=== PATIENT | female | born 1980 | race Caucasian/White ===

== ENCOUNTER → 2022-02-19 09:35 | Outpatient (CLI) | payer OTHER, SELFPAY ==
--- NOTE | ~2022-02-19 | XR_ITS ---
EXAM: XR lumbar spine min 4V DATE: 02/19/2022 10:15 HISTORY: M54.16 - Radiculopathy, lumbar region . COMPARISON: None available. FINDINGS: Cholecystectomy clips. Tubal ligation 5 nonrib-bearing lumbar-type vertebral bodies. Pedicl es intact. 3 mm anterolisthesis of L5 on S1. Vertebral body heights preserved. Disc space narrowing, mild at L4-5 and severe at L5-S1. No pars defect. Lower lumbar facet hypertrophy and sclerosis. No fr acture or dislocation. IMPRESSION: Grade 1 anterolisthesis and severe degenerative disc disease at L5-S1. Moderate lower lum bar facet arthropathy. Reviewed, dictated and finalized at location K. IMPRESSION: Grade 1 anterolisthesis and severe degenerative disc disease at L5- S1. Moderate lower lumbar facet arthropathy.
== END ==
PROVIDERS: PCP Family Medicine; Visit Provider Family Medicine
DX: M47.26 Other spondylosis with radiculopathy, lumbar region (principal)
CPT/HCPCS: 72110

== ENCOUNTER 2022-03-06 12:30 | Outpatient (RCR) | payer OTHER, SELFPAY | END 2022-04-18 11:10 | disposition home or self-care (01) | LOC: ANHGOSHPT 12:30 | PROVIDERS: PCP Family Medicine; Visit Provider Family Medicine | DX: M54.16 Radiculopathy, lumbar region (principal) | CPT/HCPCS: 99199 ==

== ENCOUNTER 2022-04-03 12:30 | Outpatient (RCR) | payer OTHER, SELFPAY ==
--- NOTE | 2022-03-06 13:44 | PTOPEVAL ---
PHYSICAL THERAPY INITIAL EVALUATION. Thank you for referring Nuria Billings to [facility].? The patient is scheduled to be seen for therapy? 2x/week for 4 weeks. Please review, sign, date and return this plan of care JOSH. I agree with and certify that the following plan of care is medically necessary. Referring Physician Date Attending Provider: Ben Garsia MD *PT Outpatient Evaluation Start: 03/06/22 Evaluation Information Diagnosis low back, buttock, and leg pain Onset 3 years Subjective Information Pts states she the last 3 Query Text:As Reported By Patient/ years her back has gone numb. Family In the last couple of months, this has progressed to shooting pain down the back of her L leg, also causing her L foot to go numb. She states this is the worst at the end of the day and with static standing like cooking dinner. She states the intensity of her pain is directly related to the amount of activity she has done that day. Pt states she can sit for as long as she wants. Pt states she has been trying to walk for exercise but is limited d/t her back pain. 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 Pain Assessment Lower Back Reported Pain Level 2 Pain Description Numbness,Shooting Pain Radiation Left Leg Lowest Pain Intensity 0 Greatest Pain Intensity 6 Lumbar ROM Lumbar Flexion Active Ankle Lateral Flexion able to reach lateral knee Query Text:Active Hands to: joint bilaterally Lateral Rotation Right (0-45) 45 Lateral Rotation Left (0-45) 45 Lumbar ROM 75% of Normal Lumbar Comments no movement bias noted through repeated flexion/extension 4 cm of change during extension 10 cm of change during flexion Lower Extremity Range of Motion General Lower Extremity Range of Motion WFL/Left,WFL/Right Lower Extremity Muscle Strength Testing Gross Lower Extremity Strength dashawn hip flexion 4+/5 dashawn hip abduction 4/5 dashawn knee flexion/extnesion 4/5 Muscle Length Testing Muscle Length Testing Piriformis
--- NOTE | 2022-04-03 13:11 | PTOPDC ---
Evaluation Information Assessment Status Progress Diagnosis low back pain Onset 3 years Subjective Information Pt states in over a week she has had absolutely no pain. She reports minor tingling in her calf 2 days ago that lasted less than 5 mins. Pt states standing and cooking dinner is usually when she has pain, she has not had this in a week. Pt reports 75% improvement in overall symptoms. Cristóbal reports good compliance with her HEP. Reported Pain Level Pain Score 0: Self Report Assessment PT Clinical Summary Nuria presents to therapy today for her progress report following 6 visits of therapy. Today she reports no pain in the last week and one report of mild tingling that subsided quickly. She has improved her lumbar motion, LE strength, and postural awareness. She reports good compliance with her HEP and has met all of her therapy goals. She is to be discharged from skilled therapy services at this time with instructions to continue her HEP upon discharged and to follow up with her referring provider if needed. Plan of Care PT Services Indicated No Treatment Frequency and to be d/c'ed Duration
== END 2022-04-17 09:49 | disposition home or self-care (01) ==
LOC: ANHGOSHPT 12:30
PROVIDERS: PCP Family Medicine; Visit Provider Family Medicine
DX: M54.16 Radiculopathy, lumbar region (principal)
CPT/HCPCS: 97110; 97112; 97140; 97161; 97530

== ENCOUNTER → 2022-09-09 11:17 | Outpatient (CLI) | payer OTHER, SELFPAY ==
--- NOTE | ~2022-09-09 | MM_ITS ---
EXAMINATION: MM screening garcia BI w macrina HISTORY: Screening mammogram TECHNIQUE: Craniocaudal and mediolateral oblique 3-D tomosynthesis images were obtained and synthetic 2-D images were generated. CAD analysis was submitted and interpreted. COMPARISON: No prior mammogram is available for comparison at this institution. BREAST PARENCHYMAL COMPOSITION: The breasts are almost entirely fatty. FINDINGS: There is no evidence of suspicious mass, calcification, or architectural distortion to sugg est malignancy in either breast. There has been no suspicious interval change. IMPRESSION: 1. No mammographic evidence of malignancy. 2. Recommend routine screening mammography in one year. BI-RADS Category 1: Negative Reviewed, dictated and finalized at location A. ING EFFICIENCY COURSE DIRECTOR
== END ==
PROVIDERS: PCP Family Medicine; Visit Provider Family Medicine
DX: Z12.31 Encounter for screening mammogram for malignant neoplasm of breast (principal)
CPT/HCPCS: 77063; 77067

== ENCOUNTER 2023-02-08 09:50 | Emergency (ER) | payer OTHER, SELFPAY ==
[2023-02-08] VITALS (17 sets, daily range): BP systolic 97–169; BP diastolic 76–97; PULSE 79–102; RESP 13–31; TEMP 36.7; O2SAT 77–100
--- NOTE | ~2023-02-08 | CT_ITS ---
EXAMINATION: CT abdomen pelvis wo con DATE: 02/08/2023 10:40 INDICATION: Left flank pain. TECHNIQUE: Computed tomography (CT) of the abdomen and pelvis was performed without intravenous contr ast. Automated exposure control and iterative reconstruction technique were employed. The dose-length product was 1440.93 mGy-cm. COMPARISON: None. FINDINGS: The visualized portions of the lung bases demonstrate mild atelectasis. No pleural effusion . The heart size is normal. No pericardial effusion. The liver and spleen are normal. There are sofia es of cholecystectomy. The pancreas and adrenal glands are normal. There is a 1 mm stone in right kid [place]. There are 1 mm and 3 mm stones in left kidney. There is mild left hydronephrosis and hydroureter . There is a 2 mm stone in distal left ureter. There are inserts in the fallopian tubes. There are no dilated loops of bowel. The appendix is normal. There are no pathologically enlarged lymph nodes. Th ere is no free intraperitoneal fluid. There is an umbilical hernia containing fat. There is moderate lower lumbar spondylosis. IMPRESSION: 1. 2 mm stone in distal left ureter with mild left hydronephrosis and hydroureter. 2. Bilateral nonobstructing kidney stones. Reviewed, dictated and finalized at location A. IMPRESSION: 1. 2 mm stone in distal left ureter with mild left hydronephrosis and hydrouret er. 2. Bilateral nonobstructing kidney stones.
--- NOTE | ~2023-02-08 | XR_ITS ---
EXAMINATION: XR chest 2V DATE: 02/08/2023 12:30 INDICATION: Epigastric abdominal pain. TECHNIQUE: Frontal and lateral views of the chest were obtained. COMPARISON: CT abdomen and pelvis 02/08/2023 FINDINGS: The chest demonstrates clear lungs without pneumonia, pleural effusion, or pneumothorax. Th e heart size is normal. Surgical clips in the right upper quadrant are likely from cholecystectomy. IMPRESSION: 1. No acute cardiopulmonary disease. Reviewed, dictated and finalized at location A.
--- NOTE | 2023-02-08 10:03 | ED.ABDPAIN ---
HPI - Abdominal Pain General Chief Complaint: Abdominal Pain <Steph Rey PA-C - Last Filed: 02/08/23 14:03> Stated Complaint: left flank pain <Steph Rey PA-C - Last Filed: 02/08/23 14:03> Time Seen by Provider: 02/08/23 09:57 <Steph Rey PA-C - Last Filed: 02/08/23 14:03> History of Present Illness HPI narrative: 42-year-old female reports for evaluation of left flank pain that radiates to her suprapubic region since 514 today. She is also reporting decreased urine output, nausea and vomiting x2. She denies fever, body aches or chills, dysuria or hematuria, diarrhea. No history of kidney stones. Last BM today was normal. <Steph Rey PA-C - Last Filed: 02/08/23 14:03> Related Data Allergies/Adverse Reactions: Allergies Allergy/AdvReac Type Severity Reaction Status Date / Time dog dander Allergy Unknown unknown Verified 02/08/23 09:59 No Known Allergies Allergy Verified 02/08/23 09:59 <Steph Rey PA-C - Last Filed: 02/08/23 14:03> Review of Systems Review of Systems: CONSTITUTIONAL: Denies fever, chills EYES: Denies visual changes, redness, or discharge. ENT: Denies rhinorrhea, congestion, sore throat, or otalgia. CARDIOVASCULAR: Denies chest pain, palpitations, or edema. RESPIRATORY: Denies cough or dyspnea. GASTROINTESTINAL: See HPI GENITOURINARY: See HPI SKIN: Denies rash or itching. MUSCULOSKELETAL: See HPI NEUROLOGIC: Denies headache, numbness, dizziness, or weakness. PSYCHIATRIC: Denies anxiety or depression. <Steph Rey PA-C - Last Filed: 02/08/23 14:03> [facility] Past Medical History Medical History: Medical History Carpal tunnel syndrome FH: cholecystectomy Influenza A <Steph Rey PA-C - Last Filed: 02/08/23 14:03> Surgical History Surgical History: Surgical History Hx of cholecystectomy <Steph Rey PA-C - Last Filed: 02/08/23 14:03> Family History Family History: Family History Sibling Family history of thyroid disease Breast cancer Father Family history of thyroid disease Family history of chronic obstructive pulmonary disease Mother Family history of thyroid disease Hypertension Grandparent Family history of glaucoma Cerebrovascular accident <Steph Rey PA-C - Last Filed: 02/08/23 14:03> Social History Social History: Social History Smoking status: Never smoker Alcohol intake: current <Steph Rey PA-C - Last Filed: 02/08/23 14:03> Exam Narrative: GENERAL: Well-appearing, in no acute distress. Patient resting comfortably examined. She is pleasant and positional. HEAD: Normocephalic EYES: PERRLA ENT: Nares clear. Mucous membranes moist. Oropharynx without tonsillar hypertrophy exudate or other lesions. NECK: Supple. CHEST: No respiratory distress. Clear to auscultation, no adventitious breath sounds. HEART: Regular rate and rhythm. No murmur heard. Normal peripheral pulses. ABDOMEN: Soft, nontender, normal active bowel sounds. No CVA tenderness. EXTREMITIES: Normal range of motion. No edema. SKIN: Warm, dry, no rash. NEURO: No focal deficits. Alert and oriented x3. PSYCH: Normal mood and affect. <Steph Rey PA-C - Last Filed: 02/08/23 14:03> Course Course Emergency Course: Pt reevaluated. She reports resolution of abdominal pain, but is now tearful and complaining of burning epigastric pain radiating to her back, which she believes is secondary to indigestion. Given she is an overweight middle aged femail with positive FMH of cardiac dz, will initiate cardiac workup in addition to administration of Pepcid and GI cocktail. Pt agreeable to plan. <Steph Rey PA-C - Last Filed:
[2023-02-08 10:15] LABS: Basophils Percent Auto 0.4 % (0.2-1.2); Eosinophils Percent Auto 0.4 % (0-4.4); Hemoglobin 14.6 g/dL (12.0-15.0); Immature Granulocyte Absolute 0.04 K/mm3 (0.00-0.031); Immature Granulocyte Percent A 0.8 % (0-0.5); Lymphocytes Absolute Auto 0.63 K/mm3 (0.9-3.2); Lymphocytes Percent Auto 12.8 % (18.3-44.2); Mean Corpuscular HGB Conc 32.4 g/dl (32-36); Mean Corpuscular Volume 83.3 fl (80-100); Mean Platelet Volume 10.3 fl (7.4-10.4); Monocytes Absolute Auto 0.3 K/mm3 (0.1-0.6); Monocytes Percent Auto 6.3 % (2.6-8.5); Neutrophils Absolute Auto 3.9 K/mm3 (1.3-6.7); Neutrophils Percent Auto 79.3 % (45.5-73.1); Platelet Count Result 219 k/mm3 (150-375); Red Cell Distribution Width 12.4 % (11.5-14.5); White Blood Count 4.9 K/mm3 (4.5-10.0)
[2023-02-08] MEDS: ONDANSETRON INJ 4 MG/2 ML VIAL IV PUSH (10:23)
[2023-02-08] MEDS: SODIUM CHLORIDE 0.9% IV 1,000 ML 999 ML IV CONT (10:23)
[2023-02-08] MEDS: MORPHINE SULFATE (*CRX) 4 MG/ML INJ IV PUSH (10:23)
[2023-02-08 10:45] LABS: Alanine Aminotransferase 45 U/L (6-35); Albumin Level 4.5 g/dL (3.5-5.1); Alkaline Phosphatase 63 U/L (38-126); Anion Gap 5 mmol/L (8-16); Aspartate Amino Transferase 43 U/L (14-36); Bilirubin,Total 0.5 mg/dL (0.2-1.3); Blood Urea Nitrogen 14 mg/dL (7-17); Calcium 9.2 mg/dL (8.4-10.2); Carbon Dioxide 28 mmol/L (22-30); Chloride 105 mmol/L (98-107); Estimated CRCL calculation 85 ml/min; Estimated Glomerular Filt Rate > 60; Glucose 112 mg/dL (65-110); Lipase 67 U/L (23-300); Potassium 4.1 mmol/L (3.4-5.0); Sodium 138 mmol/L (137-145)
[2023-02-08 10:57] LABS: Appearance Urine Turbid (Clear); Bacteria Urine 4+ /hpf; Bilirubin Urine 1+ (Negative); Blood Urine Negative (Negative); Color Urine Dark Yellow (Yellow); Glucose Urine UA Negative (Negative); Ketones Urine Trace mg/dL (Negative); Leukocyte Esterase Ur 2+ LEU/UL (Negative); Need Manual Microscopic Reviewed; Nitrate Urine Negative (Negative); Protein Urine 1+ mg/dL (Negative); RBC Urine 21-50 /hpf (0-2); Specific Grav Ur 1.035 (1.001-1.035); Squamous Epithelial Cell Urine Moderate /hpf (Few); WBC Urine 21-50 /hpf; pH Urine 7.5 (5.0-9.0)
[2023-02-08 11:10] LABS: Add Urine Microscopic? YES
[2023-02-08] MEDS: BELLADONNA ALK/PHENOB ELIX 10 ML, MAG HYDROX/ALUMINUM HYD/SIMETH 30 ML, LIDOCAINE HCL 2... PO (11:34)
[2023-02-08] MEDS: FAMOTIDINE 20 MG/2 ML VIAL IV PUSH (11:37)
--- NOTE | 2023-02-08 12:04 | ECG_ITS ---
Measurements Intervals [place] Rate: 85 P: 34 NJ: 191 QRS: 43 QRSD: 89 T: 39 QT: 370 QTc: 441 Interpretive Statements SINUS RHYTHM BASELINE ARTIFACT- I, III, AVR, AVL BORDERLINE ECG NO PREVIOUS ECG AVAILABLE FOR COMPARISON Electronically Signed On 02-08-2023 16:37:08 CDT by Adolfo Camarillo D.O.
[2023-02-08 13:01] LABS: INR 0.9; Partial Thromboplastin Time 25.5 SECONDS (22.3-36.8); Prothrombin Time 12.8 Seconds (11.1-14.7)
[2023-02-08 13:06] LABS: NT Pro B Type Natriuretic Pept 31 pg/mL (19.9-100); Troponin I < 0.012 ng/mL (0.000-0.034)
[2023-02-08 13:23] LABS: Troponin I < 0.012 ng/mL (0.000-0.034)
== END 2023-02-08 14:39 | disposition home or self-care (01) ==
PROVIDERS: Emergency Medicine; Emergency Provider Physician Assistant; PCP Family Medicine
DX: N13.2 Hydronephrosis with renal and ureteral calculous obstruction (principal); R10.13 Epigastric pain; R82.89 Other abnormal findings on cytological and histological examination of urine
CPT/HCPCS: 36415; 71046; 74176; 80053; 81001; 81025; 83690; 83880; 84484; 85025; 85610; 85730; 87086; 93005; 96361; 96365; 96375; 99284; A9270; J0696; J2270; J2405; J7030

== ENCOUNTER → 2023-02-17 13:13 | Outpatient (CLI) | payer OTHER, SELFPAY ==
--- NOTE | ~2023-02-17 | US_ITS ---
Renal-Bladder ultrasound Clinical History: Hydronephrosis Technique: Real-time sonographic imaging of the kidneys and urinary bladder was performed. Findings: The right kidney measures 9.4 cm in length and the left kidney measures 10.9 cm. There is n o hydronephrosis or renal calculus identified. Renal cortical echogenicity is within normal limits. N o renal mass lesion is identified. The urinary bladder is moderately distended at the time of this exam. No intraluminal echoes are iden tified. No abnormal wall thickening is seen. Impression: Unremarkable ultrasound of the kidneys and urinary bladder. Reviewed, dictated and finalized at location M. Impression: Unremarkable ultrasound of the kidneys and urinary bladder.
== END ==
PROVIDERS: PCP Family Medicine; Visit Provider Family Medicine
DX: N13.2 Hydronephrosis with renal and ureteral calculous obstruction (principal)
CPT/HCPCS: 76775

== ENCOUNTER 2024-07-12 08:13 | Outpatient (CLI) | payer OTHER, SELFPAY ==
--- NOTE | ~2024-07-12 | MR_ITS ---
MRI of the lumbar spine Clinical History: Radiculopathy Technique: Axial T2-weighted images, and sagittal T1-weighted, T2-weighted, and T2 fat-sat images wer e acquired. Findings: There is no fracture in the lumbar spine. There is minimal grade 1 anterolisthesis of L5 ov er S1. No bone marrow signal abnormality seen. At L1-L2, L2-L3, L3-L4, there is no disc bulge or herniation. There are moderate facet joint degenera tive changes at these levels. No spinal canal stenosis or neural foraminal narrowing at these levels. At L4-L5, there is disc bulge and severe facet arthropathy, resulting in mild central canal stenosis. There is moderate to severe right neural foraminal narrowing focally. Left neural foramen preserved. At L5-S1, there is disc bulge and severe facet arthropathy, with severe spinal canal stenosis. There is mild to moderate bilateral neural foraminal narrowing. Paravertebral soft tissues are unremarkable. Impression: Advanced degenerative spondylosis at L4-L5 and L5-S1, as detailed above. Minimal grade 1 anterolisthesis of L5 over S1. Reviewed, dictated and finalized at [facility]. VAULT SUPERVISOR Impression: Advanced degenerative spondylosis at L4-L5 and L5-S1, as detailed above. Minimal grade 1 anterolisthesis of L5 over S1.
== END 2024-07-12 08:14 | disposition home or self-care (01) ==
PROVIDERS: PCP Family Medicine; Visit Provider Family Medicine
DX: M47.816 Spondylosis without myelopathy or radiculopathy, lumbar region (principal); M47.817 Spondylosis without myelopathy or radiculopathy, lumbosacral region; M43.17 Spondylolisthesis, lumbosacral region
CPT/HCPCS: 72148

== ENCOUNTER 2024-07-29 09:54 | Outpatient (CLI) | payer OTHER, SELFPAY ==
--- NOTE | ~2024-07-29 | MM_ITS ---
EXAMINATION: MM screening garcia BI w macrina HISTORY: Screening. Significant family history of breast cancer TECHNIQUE: Craniocaudal and mediolateral oblique 3-D tomosynthesis images were obtained and synthetic 2-D images were generated. CAD analysis was submitted and interpreted. COMPARISON: 09/09/2022 BREAST PARENCHYMAL COMPOSITION: There are scattered areas of fibroglandular density. FINDINGS: Punctate calcifications detected bilaterally, benign in appearance and dermal in origin. Stable parenchymal pattern without suspicious microcalcifications, architectural distortion, discrete masses or significant asymmetry. IMPRESSION: 1. No mammographic evidence of malignancy. 2. Recommend routine screening mammography in one year. BI-RADS Category 2: Benign finding(s). Reviewed, dictated and finalized at location A. L PERFORMER
== END 2024-07-29 09:55 | disposition home or self-care (01) ==
LOC: MICIMG 09:55
PROVIDERS: PCP Family Medicine; Visit Provider Family Medicine
DX: Z12.31 Encounter for screening mammogram for malignant neoplasm of breast (principal); Z80.3 Family history of malignant neoplasm of breast
CPT/HCPCS: 77063; 77067

== ENCOUNTER 2024-09-03 03:24 | Day surgery (SDC) | payer OTHER, SELFPAY ==
[2024-08-24 12:40] VITALS: BMI 39.2
--- OUTSIDE RECORDS SUMMARY | 2024-09-03 03:31 | XMS_ITS | Clinical Summary ---
Author Organization [facility] Address [address] [place] [id number] Care Team Providers Care Advertising Sales Assistant Name Role Phone Leonela Garsia MD Primary Care Provider + Allergies No known active allergies Medications gabapentin (NEURONTIN) 300 mg capsuleIndicati ons:Spinal stenosis, lumbar region without neurogenic claudication,Ra diculopathy, lumbar region Take 1 capsule (300 mg total) by mouth 3 (three) times a day 90 capsule 2 07/21/2024 5 Active Active Problems No known active problems Encounters Date Type Department Care Team Description 07/21/2024 7:57 PM AFFIRMATIVE ACTION OFFICER - 07/21/2024 11:59 PM AFFIRMATIVE ACTION OFFICER Hospital Encounter [facility] Radiology [facility] [address] [place] [address] Discharge Disposition: Discharge to home or self care 07/21/2024 10:15 AM AFFIRMATIVE ACTION OFFICER Office Visit [facility] Neurosurgery [address] [place] [address] Medical Office [address] [place] [address] Ramiro Yoon NP Spinal stenosis, lumbar region without neurogenic claudication (Primary Dx); Radiculopathy, lumbar region 07/21/2024 9:45 AM AFFIRMATIVE ACTION OFFICER - 07/21/2024 11:59 PM AFFIRMATIVE ACTION OFFICER Hospital Encounter [facility] Radiology [address] [place] [address] [address] [place] [address] Spinal stenosis, lumbar region without neurogenic claudication; Radiculopathy, lumbar region Discharge Disposition: Discharge to home or self care 07/16/2024 Telephone [facility] Scheduling [address] [place] [address] Elisabeth Grossman from Last 3 Months Social History Tobacco Use Types Packs/Day Years Used Date Smoking Tobacco: Never Smokeless Tobacco: Never Tobacco Cessation:Counseling Given: No Comments Unknown Sex and Gender Information Value Date Recorded Sex Assigned at Not on file Legal Sex Female 12:18 PM CDT Gender Identity Not on file Sexual Orientation Not on file Obstetrics History Last Filed Vital Signs Vital Sign Reading Time Taken Comments Blood Pressure 134/95 07/21/2024 11:02 AM AFFIRMATIVE ACTION OFFICER Pulse 93 07/21/2024 11:02 AM AFFIRMATIVE ACTION OFFICER Temperature - - Respiratory Rate - - Oxygen Saturation - - Inhaled Oxygen Concentration - - Weight 105.7 kg (233 lb) 07/21/2024 11:02 AM AFFIRMATIVE ACTION OFFICER Height 165.1 cm (5' 5 ) 07/21/2024 11:02 AM AFFIRMATIVE ACTION OFFICER Body Mass Index 38.77 07/21/2024 11:02 AM AFFIRMATIVE ACTION OFFICER Plan of Treatment Health Maintenance Due Date Last Done Comments Breast Cancer Screening-Mammogram 1978 Cervical Cancer Screening 1978 Colon Cancer Screening-Colonoscopy 1978 Depression Screening 1978 Hepatitis C Screening 1978 Hepatitis B Screening 1996 Regular Well Visit/Exam 18-64 1996 DTaP/Tdap/Td Vaccine (2 - Td or Tdap) 04/24/2027 04/24/2017 Influenza Vaccine Completed 06/23/2024, 07/04/2022 Covid-19 Vaccine Completed 06/26/2024, 08/2021, 08/08/2021, Additional history exists HPV Vaccines Aged Out No longer eligi ble based on patient's age to complete this topic Pneumococcal vaccine <65 Aged Out No longer eligible based on patient's age to complete this topic Procedures Procedure Name Priority Date/Time Associated Diagnosis Comments NEURO MR OUTSIDE REFERENCE Routine 07/21/2024 7:57 PM AFFIRMATIVE ACTION OFFICER XR SCOLIOSIS 6 OR MORE VIEWS Schedule Routine, Read Routine (OP Routine) 07/21/2024 10:59 AM AFFIRMATIVE ACTION OFFICER Spinal stenosis, lumbar region without neurogenic claudication Radiculopathy, lumbar region from Last 3 Months Results * Neuro MR Outside Reference (07/21/2024 7:57 PM AFFIRMATIVE ACTION OFFICER) Impressions [facility] - 07/21/2024 7:57 PM AFFIRMATIVE ACTION OFFICER These images are for Reference purposes only and have not been reviewed by [facility]iology. ??There will be no report generated by a [facility] Radiologist. Narrative [facility] - 07/21/2024 7:57 PM AFFIRMATIVE ACTION OFFICER EXAMINATION: ??Images For Reference Purposes Only us Ramiro Yoon NP IMG MRI PROCEDURES Final Result [facility] * XR Scoliosis 6 or More Views (07/21/2024 10:59 AM AFFIRMATIVE ACTION OFFICER) Anatomical Region Laterality Modality Spine N/A Computed Radiogr aphy 07/21/2024 11:5 5 AM AFFIRMATIVE ACTION OFFICER Impressions 07/21/2024 11:55 AM AFFIRMATIVE ACTION OFFICER Multilevel lumbar spine degenerative disc disease worst and moderate L5-S1. Electronically signed by: Alli Lin M.D. Narrative 07/21/2024 11:55 AM AFFIRMATIVE ACTION OFFICER EXAMINATION: XR SCOLIOSIS ??6 OR MORE VIEWS HISTORY: Back pain FINDINGS: AP and lateral standing images of the entire spine and 4 views of the lumbar spine were performed without comparison. ??There is no significant scoliosis. ??There is no coronal imbalance or pelvic obliquity. ??There is mild anterior sagittal imbalance. ??Right upper quadrant surgical clips are noted. ??Tubal occlusion devices are present. ??There is grade 1 anterolisthesis L4-S1. ??This does not change on flexion extension. ??There is multilevel degenerative disc disease worst and moderate L5-S1. ??Facet osteoarthritis is noted. Procedure Note Alli Lin MD PhD - 07/21/2024 EXAMINATION: XR SCOLIOSIS 6 OR MORE VIEWS HISTORY: Back pain FINDINGS: AP and lateral standing images of the entire spine and 4 views of the lumbar spine were performed without comparison. There is no significant scoliosis. There is no coronal imbalance or pelvic obliquity. There is mild anterior sagittal imbalance. Right upper quadrant surgical clips are noted. Tubal occlusion devices are present. There is grade 1 anterolisthesis L4-S1. This does not change on flexion extension. There is multilevel degenerative disc disease worst and moderate L5-S1. Facet osteoarthritis is noted. IMPRESSION: Multilevel lumbar spine degenerative disc disease worst and moderate L5-S1. Electronically signed by: Alli Lin M.D. Ramiro Yoon PROCESSING ASSISTANT IMG XR PROCEDURES Final Result from Last 3 Months Insurance [employer] Care Teams Advertising Sales Assistant Relationship Specialty Start Date End Date Leonela Garsia MD [facility] - General 04/01/17
--- OUTSIDE RECORDS SUMMARY | 2024-09-03 03:31 | XMS_ITS | Encounter Summary ---
Author Organization [facility] Address [address] [place] [address] Care Team Providers Care Automobile Detailer Name Role Phone Anna Marie Ceja MD Primary Care Provider [phone] Encounter Details Date Type Department Care Team (Latest Contact Info) Description 06/10/2002 Inpatient Historical HIS PATIENT IN A BED Patrick Kincaid MD [address] [place] [address] [address] [address] Ben Ramírez MD [address] [place], [place] [address] [address] ABNL HEART RATE/RHYTHM,DELIV (Primary Dx) Social History Tobacco Use Types Packs/Day Years Used Date Smoking Tobacco: Never Assessed Comments Unknown Sex and Gender Information Value Date Recorded Sex Assigned at Not on file Legal Sex Female 3:59 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
--- OUTSIDE RECORDS SUMMARY | 2024-09-03 03:31 | XMS_ITS | Clinical Summary ---
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 Gender Identity Not on file Sexual Orientation Not on file Plan of Treatment Health Maintenance Due Date Last Done Comments Hepatitis C Virus (HCV) Screening 1978 Hepatitis B Immunization (1 of 3 - 19+ 3-dose series) 1997 Pap Smear 1999 Cervical Cancer Screening (CCS) 2008 HPV/Cotest 2008 Discussion re Starting/Frequency of Mammograms 2018 Colonoscopy 2023 Colorectal Cancer Screening 2023 Influenza Immunization (#1) 2024 SARS-COV-2 Immunization ( season) 2024 08/08/2021, 11/23/2020, 11/02/2020 Respiratory Syncytial Virus (RSV) Immunization (Adult) (1 - 1-dose 75+ series) 2053 DTaP/Tdap/Td Immunization Discontinued 04/24/2017 TdaP Immunization Completed 04/24/2017 Meningococcal Immunization (ACWY) Aged Out No longer eligible based on patient's age to complete this topic Pneumococcal Immunization Combined Aged Out No longer eligible based on patient's age to complete this topic Rotavirus Immunization Aged Out No lo nger eligible based on patient's age to complete this topic
--- OUTSIDE RECORDS SUMMARY | 2024-09-03 03:31 | XMS_ITS | Referral Summary ---
Author Organization [facility] Address [address] [place] [address] Care Team Providers Care Golf Superintendent Name Role Phone Leonela Garsia MD Primary Care Provider + Encounters Date Type Department Care Team Description 07/21/2024 7:57 PM SUBSEA ENGINEER - 07/21/2024 11:59 PM SUBSEA ENGINEER Hospital Encounter [facility] Radiology [facility] [address] [place] [address] Discharge Disposition: Discharge to home or self care 07/21/2024 9:45 AM SUBSEA ENGINEER - 07/21/2024 11:59 PM SUBSEA ENGINEER Hospital Encounter [facility] [address] [place] [address] [address] [place] [address] Spinal stenosis, lumbar region without neurogenic claudication; Radiculopathy, lumbar region Discharge Disposition: Discharge to home or self care 07/21/2024 10:15 AM SUBSEA ENGINEER Office Visit [facility] Neurosurgery [address] [place] [address] Medical Office Building [address] [place] [address] Ramiro Yoon NP Spinal stenosis, lumbar region without neurogenic claudication (Primary Dx); Radiculopathy, lumbar region 07/16/2024 Telephone [facility] Scheduling [address] [place] [address] lEisabeth Grossman from Last 3 Months Allergies No known active allergies Medications gabapentin (NEURONTIN) 300 mg capsuleIndicati ons:Spinal stenosis, lumbar region without neurogenic claudication,Ra diculopathy, lumbar region Take 1 capsule (300 mg total) by mouth 3 (three) times a day 90 capsule 2 07/21/2024 Active Active Problems No known active problems Social History Tobacco Use Types Packs/Day Years Used Date Smoking Tobacco: Never Smokeless Tobacco: Never Tobacco Cessation:Counseling Given: No Comments Unknown Sex and Gender Information Value Date Recorded Sex Assigned at Not on file Legal Sex Female 12:18 PM CDT Gender Identity Not on file Sexual Orientation Not on file Last Filed Vital Signs Vital Sign Reading Time Taken Comments Blood Pressure 134/95 07/21/2024 11:02 AM SUBSEA ENGINEER Pulse 93 07/21/2024 11:02 AM SUBSEA ENGINEER Temperature - - Respiratory Rate - - Oxygen Saturation - - Inhaled Oxygen Concentration - - Weight 105.7 kg (233 lb) 07/21/2024 11:02 AM SUBSEA ENGINEER Height 165.1 cm (5' 5 ) 07/21/2024 11:02 AM SUBSEA ENGINEER Body Mass Index 38.77 07/21/2024 11:02 AM SUBSEA ENGINEER Plan of Treatment Not on file Procedures Procedure Name Priority Date/Time Associated Diagnosis Comments NEURO MR OUTSIDE REFERENCE Routine 07/21/2024 7:57 PM SUBSEA ENGINEER XR SCOLIOSIS 6 OR MORE VIEWS Schedule Routine, Read Routine (OP Routine) 07/21/2024 10:59 AM SUBSEA ENGINEER Spinal stenosis, lumbar region without neurogenic claudication Radiculopathy, lumbar region from Last 3 Months Results * Neuro MR Outside Reference (07/21/2024 7:57 PM SUBSEA ENGINEER) Impressions RAD_PACS_[facility] - 07/21/2024 7:57 PM SUBSEA ENGINEER These images are for Reference purposes only and have not been reviewed by [facility] Radiology. ??There will be no report generated by a [facility] Radiologist. 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 Electronically signed by: Alli Lin M.D. Narrative 07/21/2024 11:55 AM SUBSEA ENGINEER EXAMINATION: XR SCOLIOSIS ??6 OR MORE VIEWS [...] signed by: Alli Lin M.D. Ramiro Yoon NP IMG XR PROCEDURES Final Result from Last 3 Months Insurance CIGNA CIGNA Care Teams Golf Superintendent Relationship Specialty Start Date End Date Leonela Garsia MD PCP - General 04/01/17
--- OUTSIDE RECORDS SUMMARY | 2024-09-03 03:31 | XMS_ITS | Continuity of Care Document ---
Author Organization [facility] Address [address] [place] [address] Phone Care Team Providers Care Oxygen Plant Operator Name Role Phone Cha Ellison Unavailable Unavailable Medications Medication Instructions Dosage Effective Dates (start - stop) Status Comments SYNTHROID 200MCG TABS 1 QD - Acti ve REGLAN 10MG TABS 1 TID - Active ac CEPHALEXIN 500MG CAPS 1 TID - No Longer Active TRIMOX 500MG CAPSULE 1 TID 1999 - No Longer Active SYNTHROID 125MCG TABS 1 QD - No Longer Active TRIMOX 500MG CAPS 1 TID 0 - No Longer Active Advance Directives Directive Yes / No Effective Date File Name No Information Encounters Encounter Description Practice Location Reason(s) For Visit Diagnoses Date Provider Providers Copied on Encounter [facility], [address], [place], [place], [address] , tel: [phone] [facility] No Information 1 Alec Eubanks. [address] , [address], [place], [place], [address], . tel:[phone] [facility], [address], [place], [place], [address] , tel: [phone] [facility] HYPOTHYROIDISM NOSOBESITY NOS Sep- 6 Brenna Thrasher. [address] [facility], [address], [place], [place], [facility], . tel:[phone] [facility] [place], [address], [place], [place], [address] , [place] tel:[phone] Ninoska GEORGE VACCIN FOR INFLUENZA Nov-2 2-200 5 [facility]. [address], [address], [place], [place], [facility], [place]. tel:[phone] [facility], [address], [place], [place], [address] , [place] tel:[phone] [facility] IM URINARY FREQUENCY Sep-1 9-200 5 [facility]. [address] [facility], [address], [place], [facility], [place]. tel:[phone] [facility] [place], [address], [place], [place], [address] , tel: [phone] N[place] GEORGE DEPRESSIVE DISORDER NECOTHER SPECFD COUNSELING Oct-1 2-200 4 Alec Eubanks. [address], [address], [place], [place], [address], [place]. tel:[phone] [facility] [place], [address], [place], [place], [address] , [place] tel:[phone] [facility] IM DISORDER OF THYROID NOSPARALYTIC ILEUS May-2 5-200 4 [facility]. [address] [facility], [address], [place], [facility], [place]. tel:[phone] [facility] [place], [address], [place], [place], [address] , [place] tel:[phone] [facility] IM MALAISE AND FATIGUE NEC Apr-0 3-200 3 [facility]. [address] [facility], [address], [place], [facility], [place]. tel:[phone] [facility], [address], [place], [place], [address] , [place] tel: [phone] [facility] IM ACUTE SINUSITIS NOS Dec-3 0-200 2 [facility]. [address] [facility], [address], [place], [facility], [place]. tel:[phone] [facility], [address], [place], [place], [address] , [place] tel: [phone] [facility] ABDMNAL PAIN GENERALIZED 2 No Information [facility], [address], [place], [place], [address] , [place] tel: [phone] [facility] NAUSEA WITH VOMITING 2 [facility] Anna Marie. [address] [facility], [address], [place], [facility], [place]. tel:[phone] [facility] [place], [address], [place], [address] [place] [address] , [place] tel: [phone] [facility] HYPOVOLEMIA 2 [facility]. [address] [facility], [address], [place], [facility], [place]. tel:[phone] [facility], [address], [place], [place], [address] , [place] tel: [phone] [facility] CELLULITIS NOS 1 Conversion [facility]. [facility] Emmanuelle [facility], [place], [facility], [place]. [facility], [address], [place], [place], [address] , [place] tel: [phone] [facility] GYNECOLOGIC EXAMINATION 200 1 [facility]. [address] [facility], [address], [place], [facility], [place]. tel:[phone] [facility] [place], [address], [place], [place], [address] , [place] tel: [phone] [facility] ACUTE TONSILLITISCHRONIC LYMPHADENITIS 0 [facility]. [address] [facility], [address], [place], [facility], [place]. tel:[phone] [facility], [address], [place], [place], [address] , [place] tel: [phone] [facility] ACUTE PHARYNGITIS 2-200 0 Mata D Cory. [address], [address], [place], [place], [address], . [phone] [facility], [address], [place], [place], [address] , tel: [phone] [facility] IM ABN PAP SMEAR-OTH SITEFEM GENITAL SYMPTOMS NOS 1-200 0 Brenna Thrasher. [address] [facility], [address], [place], [address], . tel:[phone] [facility], [address], [place], [place], [address] , tel: [phone] [facility] IM SCREEN-CARDIOVASC NEC 2-199 9 Brenna Thrasher. [address] [facility], [address], [place], [address], . tel:[phone] Family History Family Member Type Diagnosis Age At Onset No Information Immunizations Vaccine Date Status Comments 67327 - Influenza administered Source: So urce Unspecified Payers Payer name Insurance type Covered democrat ID Authoriza tion(s) No Information Social History Type Description Quantity Date Captured Comments Sex Female Smoking Status No Information Chief Complaint And Reason For Visit No Information Reason For Referral Reason For Referral No Information History Of Present Illness Encounter Date Complaint History Of Prese nt Illness No Information Functional Status Date Functional Assessmen t No Information Instructions Date Instruction Additional Infor mation No Information Assessments Type Assessment Date No Information Patient Care Teams Name Effective Dates (start - stop) Status Members No Information
--- OUTSIDE RECORDS SUMMARY | 2024-09-03 03:31 | XMS_ITS | Encounter Summary ---
Author Organization [facility] Address [address] [place] [address] Care Team Providers Care Competitive Intelligence Manager Name Role Phone Anna Marie Ceja MD Primary Care Provider [phone] Encounter Details Date Type Department Care Team (Latest Contact Info) Description 04/15/2005 Inpatient Historical HIS PATIENT IN A BED Ben Ramírez MD [address] [place] [address] [address] [place] [address] PREV DELIVERY NOS-DELIVER (Primary Dx) Social History Tobacco Use Types Packs/Day Years Used Date Smoking Tobacco: Never Assessed Comments Unknown Sex and Gender Information Value Date Recorded Sex Assigned at Not on file Legal Sex Female 3:59 AM RECREATION THERAPY TEACHER Gender Identity Not on file Sexual Orientation Not on file documented as of this encounter Plan of Treatment Not on file documented as of this encounter Procedures Procedure Name Priority Date/Time Associated Diagnosis Comments CREATININE CLEARANCE, SERUM Routine 04/16/2005 8:21 PM CDT CREATININE CLEARANCE, SERUM Routine 04/16/2005 7:00 AM CDT CREATININE CLEARANCE, SERUM Routine 04/15/2005 8:15 PM CDT CREATININE, 24 HR URINE Routine 04/15/2005 8:15 PM CDT PROTEIN, 24 HR URINE Routine 04/15/2005 8:15 PM CDT CREATININE CLEARANCE Routine 04/15/2005 8:15 PM CDT URINALYSIS WITH REFLEX CULTURE Routine 04/15/2005 6:25 PM CDT CBC WITH DIFFERENTIAL Routine 04/15/2005 6:25 PM CDT CBC WITH DIFFERENTIAL Routine 04/15/2005 6:25 PM CDT URINALYSIS W/REFLEX MICROSCOPIC Routine 04/15/2005 6:25 PM CDT URIC ACID Routine 04/15/2005 6:25 PM CDT AST Routine 04/15/2005 6:25 PM CDT LACTATE DEHYDROGENASE Routine 04/15/2005 6:25 PM CDT documented in this encounter Results * CREATININE CLEARANCE, SERUM (04/16/2005 8:21 PM CDT) CREATININE 0.7 0.4 - 1.2 mg/dL INTERFACE SYSTEM 04/16/2005 8:21 PM CDT Patrick Kincaid MD CHEMISTRY ORDERABLES Final R formerly [facility] Performing Organization Address City/[facility] [address]/[facility] Co de Phone Number INTERFACE SYSTEM Refer to clinic/hospital department * CREATININE CLEARANCE, SERUM (04/16/2005 7:00 AM CDT) CREATININE 0.7 0.4 - 1.2 mg/dL INTERFACE SYSTEM 04/16/2005 7:00 AM CDT Patrick Kincaid MD CHEMISTRY ORDERABLES Final R esult Performing Organization Address City/State/[facility] Co de Phone Number INTERFACE SYSTEM Refer to clinic/hospital department * CREATININE CLEARANCE, SERUM (04/15/2005 8:15 PM CDT) CREATININE 0.7 0.4 - 1.2 mg/dL INTERFACE SYSTEM 04/15/2005 8:15 PM CDT Ben Ramírez MD CHEMISTRY ORDERABLES Final R esult Performing Organization Address [facility] Phone Number INTERFACE SYSTEM Refer to clinic/hospital department * (ABNORMAL) CREATININE CLEARANCE (04/15/2005 8:15 PM CDT) CREATININE CLEARANCE 174(H) 75 - 125 mL/min/1.7 sq meter INTERFACE SYSTEM Comment:Creatinine Clearance result is not corrected for body surface area. 04/15/2005 8:15 PM CDT Ben Ramírez MD URINE ORDERABLES Final Resul t Performing Organization Address [facility] Phone Number INTERFACE SYSTEM Refer to clinic/hospital department * (ABNORMAL) PROTEIN, 24 HR URINE (04/15/2005 8:15 PM CDT) PROTEIN CONCENTRATION 9.0 mg/dL INTERFACE SYSTEM PROTEIN TOTAL, 24 HR URINE 0.22(H) 0.00 - 0.15 g/24 hrs INTERFACE SYSTEM 04/15/2005 8:15 PM CDT Result [facility] Ben Ramírez MD URINE ORDERABLES Final Resul t Performing Organization Address [facility] Phone Number INTERFACE SYSTEM Refer to clinic/hospital department * CREATININE, 24 HR URINE (04/15/2005 8:15 PM CDT) START DATE 24 HR UR :[id number] :0.524768 :0:0 INTERFACE SYSTEM START TIME 24 HR UR 2014 INTERFACE SYSTEM LENGTH OF COLLECTION 24 23 - 25 hr INTERFACE SYSTEM VOLUME, 24 HR URINE 2400 mL INTERFACE SYSTEM CREATININE, 24 HR URINE 1.8 0.6 - 1.8 g/24 hrs INTERFACE SYSTEM 04/15/2005 8:15 PM CDT Ben Ramírez MD URINE ORDERABLES Final Resul t Performing Organization Address [facility] Phone Number INTERFACE SYSTEM Refer to clinic/hospital department * (ABNORMAL) URINALYSIS (04/15/2005 6:25 PM CDT) COLOR UA Yellow INTERFACE SYSTEM CLARITY UA Clear Clear INTERFACE SYSTEM SPECIFIC GRAVITY UA 1.010 1.001 - 1.035 INTERFACE SYSTEM PH UA 7.0 5.0 - 8.0 INTERFACE SYSTEM LEUKOCYTE ESTERASE UA 2+(A) Negative INTERFACE SYSTEM NITRITE UA Negative Negative INTERFACE SYSTEM PROTEIN UA Negative Negative INTERFACE SYSTEM GLUCOSE UA Negative Negative INTERFACE SYSTEM KETONES UA Negative Negative INTERFACE SYSTEM UROBILINOGEN UA <1 <1 mg/dL INTE RFACE SYSTEM BILIRUBIN UA Negative Negative INTERFA CE SYSTEM BLOOD UA Negative Negative INTERFACE SYSTEM WBC UA 2 0 - 5 /HPF INTERFACE SYSTEM BACTERIA UA 1+(A) None Seen /HPF INTERFACE SYSTEM EPITHELIAL CELLS, URINE 0-2 /HPF INTERFACE SYSTEM 04/15/2005 6:25 PM CDT Ben Ramírez MD URINE ORDERABLES Final Resul t Performing Organization Address [facility] Phone Number INTERFACE SYSTEM Refer to clinic/hospital department * URINALYSIS WITH REFLEX CULTURE (04/15/2005 6:25 PM CDT) Pathologist [facility] URINE CULTURE ORDER Culture ordered INTERFACE SYSTEM Comment: Criteria for a reflex culture include one or more of the following: ??Abn ormal nitrite, leukocyte esterase, WBCs or RBCs. ??Lack of qualifying criteria does not exclude the possiblity of a urinary tract infection. ??Dilute urine, drug interference, etc. may decrease the sensitivity of the criteria analytes. 04/15/2005 6:25 PM CDT Ben Ramírez MD URINE ORDERABLES Final Resul t Performing Organization Address [facility] Phone Number INTERFACE SYSTEM Refer to clinic/hospital department * CBC WITH DIFFERENTIAL (04/15/2005 6:25 PM CDT) NEUTROPHILS 68 45 - 70 % INTERFAC E SYSTEM LYMPHOCYTES 20 16 - 45 % INTERFAC E SYSTEM MONOCYTES 11 3 - 13 % INTERFACE SYSTEM EOSINOPHILS 1 0 - 7 % INTERFAC E SYSTEM BASOPHILS 0 0 - 2 % INTERFACE SYSTEM NEUTROPHIL ABSOLUTE 5.25 1.90 - 7.00 K/uL INTERFACE SYSTEM LYMPHOCYTE ABSOLUTE 1.55 0.70 - 4.50 K/uL INTERFACE SYSTEM MONOCYTE ABSOLUTE 0.84 0.10 - 1.30 K/uL INTERFACE SYSTEM EOSINOPHIL ABSOLUTE 0.09 0.00 - 0.70 K/uL INTERFACE SYSTEM BASOPHILS ABSOLUTE 0.01 0.00 - 0.20 K/uL INTERFACE SYSTEM 04/15/2005 6:25 PM CDT us Ben Ramírez MD HEMATOLOGY ORDERABLES Final Result INTERFACE SYSTEM Refer to clinic/hospital department * (ABNORMAL) CBC WITH DIFFERENTIAL (04/15/2005 6:25 PM CDT) WBC 7.7 4.0 - 9.8 K/uL INTERFACE SYSTEM RBC 4.69 3.90 - 4.90 M/uL INTERFACE SYSTEM HEMOGLOBIN 11.7(L) 11.8 - 14.8 g/dL INTERFACE SYSTEM HEMATOCRIT 36.9 35.5 - 44.0 % INTERFACE SYSTEM MCV 78.7(L) 82.0 - 99.0 fL INTERFACE SYSTEM MCH 24.9(L) 27.2 - 32.6 pg INTERFACE SYSTEM MCHC 31.7 31.5 - 35.5 % INTERFACE SYSTEM RDW 15.6(H) 11.5 - 14.5 % INTERFACE SYSTEM RDW-STDEV 44.1 37.1 - 48.7 fL INTERFACE SYSTEM PLATELETS 228 140 - 350 K/uL INTERFACE SYSTEM MPV 12.2 9.3 - 12.4 fL INTERFACE SYSTEM 04/15/2005 6:25 PM CDT us Ben Ramírez MD HEMATOLOGY ORDERABLES Final Result INTERFACE SYSTEM Refer to clinic/hospital department * (ABNORMAL) URIC ACID (04/15/2005 6:25 PM CDT) URIC ACID 7.5(H) 2.3 - 6.6 mg/dL INTERFACE SYSTEM 04/15/2005 6:25 PM CDT us Ben Ramírez MD CHEMISTRY ORDERABLES Final R esult Performing Organization Address City/[facility] [address]/[facility] Co de Phone Number INTERFACE SYSTEM Refer to clinic/hospital department * LACTATE DEHYDROGENASE (04/15/2005 6:25 PM CDT) LD (LACTATE DEHYDROGENASE) 170 135 - 214 U/L INTERFACE SYSTEM 04/15/2005 6:25 PM CDT us Ben Ramírez MD CHEMISTRY ORDERABLES Final R esult Performing Organization Address City/[facility] [address]/[facility] de Phone Number INTERFACE SYSTEM Refer to clinic/hospital department * AST (04/15/2005 6:25 PM CDT) AST 18 12 - 32 U/L INTERFAC E SYSTEM 04/15/2005 6:25 PM CDT us Ben Ramírez MD CHEMISTRY ORDERABLES Final R esult Performing Organization Address City/[facility] [address] [facility] de Phone Number INTERFACE SYSTEM Refer to clinic/hospital department documented in this encounter Visit Diagnoses Diagnosis Previous delivery, delivered, with or without mention of antepartum condition- Primary documented in this encounter Care Teams Competitive Intelligence Manager Relationship Specialty Start Date End Date Anna Marie Ceja MD [address] [address] PCP - General 06/10/02 12/14/12 documented as of this encounter
--- OUTSIDE RECORDS SUMMARY | 2024-09-03 03:31 | XMS_ITS | Clinical Summary ---
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 AND PLASTIC Gender Identity Not on file Sexual Orientation Not on file Plan of Treatment Health Maintenance Due Date Last Done Comments DTAP/TDAP/TD VACCINES (1 - Tdap) 1997 HEPATITIS B VACCINES (1 of 3 - 19+ 3-dose series) 1997 CERVICAL CANCER SCREENING 2008 BREAST CANCER SCREENING 2018 COLORECTAL SCREENING 2023 Colorectal Cancer Screening 2023 FIT-DNA Q 3 years 2023 FIT/FOBT Q 1 year 2023 Flex Sig/CT Colonography Q 5 years 2023 INFLUENZA VACCINE (#1) 2024 HPV VACCINES Aged Out No longer eligi ble based on patient's age to complete this topic PNEUMOCOCCAL VACCINE 0-64 YEARS Aged Out No longer eligible based on patient's age to complete this topic [place] [address] [place] [id number]
--- OUTSIDE RECORDS SUMMARY | 2024-09-03 03:31 | XMS_ITS | Clinical Summary ---
Author Organization [facility] Address [address] [place] [address]. [place], [place] [address] [place] [address] Care Team Providers Care Radiology Physician Name Role Phone Unavailable Primary Care Provider Unavailabl e Social History Tobacco Use Types Packs/Day Years Used Date Smoking Tobacco: Never Assessed Comments Unknown Sex and Gender Information Value Date Recorded Sex Assigned at Not on file Legal Sex Female 4:48 PM CDT Gender Identity Not on file Sexual Orientation Not on file Plan of Treatment Health Maintenance Due Date Last Done Comments Cervical Cancer Screening Pa p Smear (Age 30 to 64) Every 3 Years 1978 Colorectal Cancer Screening Colonoscopy (10 Years) 1978 Annual Physical 1981 Hepatitis C 1996 DTaP, Tdap and Td Vaccines ( 1 - Tdap) 1997 Hepatitis B Vaccines (1 of 3 - 19+ 3-dose series) 1997 Cervical Cancer Screening Pa p with HPV Testing (Age 30 to 64) Every 5 Years 2008 Cervical Cancer Screening with HPV 2008 Mammogram Screening 2018 COVID-19 Vaccine (2023-2 5 season) 2024 Influenza Adult (#1) 2024 HPV Vaccines Aged Out No longer eligi ble based on patient's age to complete this topic Meningococcal B Vaccine Aged Out No l onger eligible based on patient's age to complete this topic Meningococcal Vaccine Aged Out No shannan chino eligible based on patient's age to complete this topic Pneumococcal Vaccine: Pediat rics (0 to 5 Years) and At-Risk Patients (6 to 64 Years) Aged Out No longer eligible b ased on patient's age to complete this topic RSV Immunizations Under 20 Months Aged Out No longer eligible based on patient's age to complete this topic
--- OUTSIDE RECORDS SUMMARY | 2024-09-03 03:31 | XMS_ITS | Encounter Summary ---
Author Organization [facility] Address [address] [place] [address] Care Team Providers Care Subscription Crew Leader Name Role Phone Anna Marie Ceja MD Primary Care Provider [phone] Encounter Details Date Type Department Care Team (Latest Contact Info) Description 04/27/2008 Outpatient Historical HIS OB PREADMIT Ben Ramírez MD [address] [place] [address] [address] [place] [address] Deliv; Prev N-Lgtnizvz-Zwomwfg; Thyroid Dysfunction of Mother, with Delivery; Unspecified Hypothyroidism; Cord Entangle NEC-Deliv; Outcome of Delivery, Single Liveborn; Vaccin for DTP Social History Tobacco Use Types Packs/Day Years Used Date Smoking Tobacco: Never Assessed Comments Unknown Sex and Gender Information Value Date Recorded Sex Assigned at Not on file 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 Gender Identity Not on file Sexual Orientation Not on file documented as of this encounter Plan of Treatment Not on file documented as of this encounter Procedures Procedure Name Priority Date/Time Associated Diagnosis Comments CBC WITH DIFFERENTIAL Routine 04/27/2008 12:09 PM CDT URINALYSIS W/REFLEX MICROSCOPIC Routine 04/27/2008 12:09 PM CDT TYPE AND SCREEN Routine 04/27/2008 12:09 PM CDT documented in this encounter Results * TYPE AND SCREEN (04/27/2008 12:09 PM CDT) HISTORY CHECK History Checked [facility] SPECIMEN LIFE 3 days from drawdate [facility] ANTIBODY SCREEN Negative [facility] ABO/RH TYPE O Positive [facility] Blood specimen (specimen) 04/27/2008 12:09 PM CDT Ben Ramírez MD BLOOD BANK ORDERABLES Edited INTERFACE SYSTEM Refer to clinic/hospital department [facility] CLIA# [id number] [address] [place] [address] * (ABNORMAL) URINALYSIS (04/27/2008 12:09 PM CDT) NITRITE UA Negative Negative [facility] UROBILINOGEN UA <1 <1 mg/dL [facility] BACTERIA UA 1+(A) None Seen /HPF [facility] PH UA 6.0 5.0 - 8.0 [facility] KETONES UA Negative Negative [facility] WBC UA 6(H) 0 - 5 /HPF [facility] CLARITY UA Clear Clear [facility] PROTEIN UA Negative Negative [facility] EPITHELIAL CELLS, URINE 5-10 /HPF [facility] BILIRUBIN UA Negative Negative [facility] LEUKOCYTE ESTERASE UA 1+(A) Negative [facility] RBC UA 1 0 - 4 /HPF [facility] SPECIFIC GRAVITY UA 1.015 1.001 - 1.035 [facility] BLOOD UA Negative Negative [facility] GLUCOSE UA Negative Negative [facility] COLOR UA Yellow [facility] Urine specimen (specimen) 04/27/2008 12:09 PM CDT 04/27/2008 12:12 PM CDT us Ben Ramírez MD URINE ORDERABLES Final Resul t INTERFACE SYSTEM Refer to clinic/hospital department [facility] CLIA# [id number] [address] [facility] [place] [address] * (ABNORMAL) CBC WITH DIFFERENTIAL (04/27/2008 12:09 PM CDT) MCV 83.4 82.0 - 99.0 fL [facility] PLATELETS 153 140 - 350 K/uL [facility] HEMOGLOBIN 13.4 11.8 - 14.8 g/dL [facility] RDW 14.6(H) 11.5 - 14.5 % [facility] WBC 4.6 4.0 - 9.8 K/uL [facility] MCH 27.8 27.2 - 32.6 pg [facility] MPV 11.4 9.3 - 12.4 fL [facility] HEMATOCRIT 40.2 35.5 - 44.0 % [facility] RDW-STDEV 44.5 37.1 - 48.7 fL [facility] RBC 4.82 3.90 - 4.90 M/uL [facility] MCHC 33.3 31.5 - 35.5 % [facility] NEUTROPHILS 68 45 - 70 % [facility] NEUTROPHIL ABSOLUTE 3.10 1.90 - 7.00 K/uL [facility] EOSINOPHILS 2 0 - 7 % [facility] EOSINOPHIL ABSOLUTE 0.09 0.00 - 0.70 K/uL [facility] LYMPHOCYTES 19 16 - 45 % [facility] LYMPHOCYTE ABSOLUTE 0.84 0.70 - 4.50 K/uL [facility] BASOPHILS 0 0 - 2 % [facility] BASOPHILS ABSOLUTE 0.02 0.00 - 0.20 K/uL [facility] MONOCYTES 11 3 - 13 % [facility] MONOCYTE ABSOLUTE 0.50 0.10 - 1.30 K/uL [facility] Blood specimen (specimen) 04/27/2008 12:09 PM CDT 04/27/2008 12:11 PM CDT us Ben Ramírez MD HEMATOLOGY ORDERABLES Edited INTERFACE SYSTEM Refer to clinic/hospital department [facility] CLIA# [id number] [address] [place] [address] documented in this encounter Visit Diagnoses Diagnosis delivery, without mention of indication, delivered, with or without mention of antepartum condition Previous delivery, delivered, with or without mention of antepartum condition Thyroid dysfunction of mother, with delivery(648.11) Thyroid dysfunction of mother, with delivery Unspecified hypothyroidism Other and unspecified cord entanglement, without mention of compression, complicating labor and delivery, delivered Outcome of delivery, single liveborn Need for prophylactic vaccination with combined mpyarwkikb-yrinfal-wzxrdidde (DTP) vaccine documented in this encounter Care Teams Subscription Crew Leader Relationship Specialty Start Date End Date Anna Marie Ceja MD [address] [facility] [address] [place] [address] PCP - General 06/10/02 12/14/12 documented as of this encounter
[2024-09-03 09:25] VITALS: BP 152/108; PULSE 93; RESP 19; TEMP 36.2; O2SAT 100
[2024-09-03 09:28] LABS: BEDSIDEPREGUCG Negative (Negative)
[2024-09-03] MEDS: LACTATED RINGERS 1,000 ML 150 ML IV CONT (09:37)
--- NOTE | 2024-09-03 09:54 | P.PNAN_ITS ---
Anes - Initial Pre Proc Eval Procedure: Operation Date: 09/03/24 11:30 Proposed Procedures p Screening Colonoscopy - Venu Bee MD Date/Time: 09/03/24 09:54 Surgeon: Venu Bee MD Pre Op Diagnosis: Screening malignant neoplasm. Patient Data Age: 44 Gender: F Height: 1.65 m Weight: 105.9 kg Last Vital Signs Temp 36.2 C L 09/03/24 09:25 Pulse 93 09/03/24 09:25 Resp 19 09/03/24 09:25 BP 152/108 H 09/03/24 09:25 Pulse Ox 100 09/03/24 09:25 O2 Del Method Room Air 09/03/24 09:25 Allergies Allergy/AdvReac Type Severity Reaction Status Date / Time dog dander Allergy Unknown unknown Verified 09/03/24 09:23 Home Medications ?Medication ?Instructions ?Recorded ?Confirmed ?Type metformin 500 mg tablet,extended See Rx Instructions PO .COMPLEX 03/26/24 09/03/24 Rx release 24 hr #360 tabs diclofenac sodium 75 mg 75 mg PO BID PRN pain #180 tabs 03/30/24 09/03/24 Rx tablet,delayed release gabapentin 300 mg capsule 300 mg PO TID 08/24/24 09/03/24 History levothyroxine 175 mcg tablet See Rx Instructions .Route 08/30/24 09/03/24 Rx .COMPLEX #90 tabs Laboratory Tests 09/03/24 09:25 POC Urine HCG, Qual Negative (Negative) Patient hx anesthesia problems: none Family hx anesthesia problems: none Results Review: All pre-operative results and documents have been reviewed as part of the pre- operative evaluation. [facility] Past Medical History Medical History Ureteral stone with hydronephrosis US KID 7.17.23 normal . no hydronephrosis Rectovaginal fistula Influenza A FH: cholecystectomy Carpal tunnel syndrome Surgical History Surgical History Hx of cholecystectomy Family History Family History Sibling Family history of thyroid disease Breast cancer Father Family history of thyroid disease Family history of chronic obstructive pulmonary disease Mother Family history of thyroid disease Hypertension Grandparent Family history of glaucoma Cerebrovascular accident Social History Social History Smoking status: Never smoker Alcohol intake: current Substance use type: does not use Lack of Transportation: No Lack of Food: Never True Current Housing: I Have Housing Concerned About Future Housing: No Difficulty Paying Gas/Electric Bills: No Difficulty Paying for Meds: No Currently Unemployed: No Education: Associate Degree Difficulty w/ Childcare or Family Care: No Anes - Eval Final PreProcedure Day of Procedure 09/03/24 09:54 Patient weight: obese Heart: regular rate and rhythm Lungs: clear to auscultation Airway: Mallampati scale class II Neurological: alert and oriented Last oral intake: >/= 8 hours ASA classification: II Emergent: no Anesthetic plan: proceed Anesthesia type and monitoring: general GIVS and standard monitoring Results Review: All pre-operative results and documents have been reviewed as part of the pre- operative evaluation. Informed Consent: The patient's anesthetic plan and its attendant risks and benefits were discussed with the patient/family/POA. Questions were solicited and answers provided to the satisfaction of the patient/family/POA.
[2024-09-03 10:04] VITALS: BP 116/79; PULSE 71; RESP 22; O2SAT 98
--- NOTE | 2024-09-03 10:11 | PM.IMHP ---
H&P: HPI History of Present Illness Date/Time: 09/03/24 10:11 Chief Complaint: Screening colonoscopy Narrative: This is the patient's first colonoscopy. There are no GI symptoms and there is no family history of colorectal cancer. Review of Systems Review of Systems: All systems reviewed & are unremarkable except as noted in HPI and below PMFSH Past Medical History Medical History Ureteral stone with hydronephrosis US KID 7.17.23 normal . no hydronephrosis Rectovaginal fistula Influenza A FH: cholecystectomy Carpal tunnel syndrome Surgical History Surgical History Hx of cholecystectomy Family History Family History Sibling Family history of thyroid disease Breast cancer Father Family history of thyroid disease Family history of chronic obstructive pulmonary disease Mother Family history of thyroid disease Hypertension Grandparent Family history of glaucoma Cerebrovascular accident Social History Social History Smoking status: Never smoker Alcohol intake: current Substance use type: does not use Lack of Transportation: No Lack of Food: Never True Current Housing: I Have Housing Concerned About Future Housing: No Difficulty Paying Gas/Electric Bills: No Difficulty Paying for Meds: No Currently Unemployed: No Education: Associate Degree Difficulty w/ Childcare or Family Care: No Meds Home Medications and Allergies Home Medications ?Medication ?Instructions ?Recorded ?Confirmed ?Type metformin 500 mg tablet,extended See Rx Instructions PO .COMPLEX 03/26/24 09/03/24 Rx release 24 hr #360 tabs diclofenac sodium 75 mg 75 mg PO BID PRN pain #180 tabs 03/30/24 09/03/24 Rx tablet,delayed release gabapentin 300 mg capsule 300 mg PO TID 08/24/24 09/03/24 History levothyroxine 175 mcg tablet See Rx Instructions .Route 08/30/24 09/03/24 Rx .COMPLEX #90 tabs Allergies Allergy/AdvReac Type Severity Reaction Status Date / Time dog dander Allergy Unknown unknown Verified 09/03/24 09:23 Vital Signs Vital Signs - 24 hr 09/03/24 09:25 Temperature 97.1 F L Pulse Rate 93 Respiratory Rate 19 Blood Pressure 152/108 H Pulse Oximetry 100 Oxygen Delivery Room Air Exam Const: General: cooperative and healthy appearing Resp: Effort & Inspection: normal respiratory effort and able to speak in complete sentences Auscultation: clear to auscultation bilaterally Cardio: Rate: regular rate Rhythm: regular rhythm GI: Inspection: normal to inspection GI Palp: No No hepatosplenomegaly present Auscultation: normal bowel sounds Rectal Exam: deferred Skin: General skin exam: normal color Psych: Appearance: grossly normal Mental Status: mental status grossly normal Assessment and Plan Assessment and plan (1) Encounter for screening colonoscopy: Code(s): Z12.11 - Encounter for screening for malignant neoplasm of colon Status: Acute Assessment and Plan: The patient is deemed a good candidate for the procedure. Consent signed. Will proceed.
--- NOTE | 2024-09-03 10:38 | SUR.OPER ---
Abdominal pressure applied, wire stiffener used, patient rotated to her back to assist with scope insertion. Suction used by WELFARE SUPERVISOR when patient retching during procedure.
[2024-09-03 10:44] VITALS: BP 122/84; PULSE 83; RESP 20; O2SAT 96
[2024-09-03 10:54] VITALS: BP 132/84; PULSE 80; RESP 22; O2SAT 95
== END 2024-09-03 11:16 | disposition home or self-care (01) ==
PROVIDERS: Anesthesiology; PCP Family Medicine; Visit Provider Internal Medicine Gastroenterology
PROC: 0DJD8ZZ Inspection of Lower Intestinal Tract, Via Natural or Artificial Opening Endoscopic (ICD-10-PCS; CPT 45378; principal; 2024-09-03 11:30)
DX: Z12.11 Encounter for screening for malignant neoplasm of colon (principal); K64.8 Other hemorrhoids; K57.30 Diverticulosis of large intestine without perforation or abscess without bleeding; G56.00 Carpal tunnel syndrome, unspecified upper limb; E66.9 Obesity, unspecified; Z68.38 Body mass index [BMI] 38.0-38.9, adult; Z79.84 Long term (current) use of oral hypoglycemic drugs; Z98.890 Other specified postprocedural states; Z90.49 Acquired absence of other specified parts of digestive tract; Z87.442 Personal history of urinary calculi; Z87.42 Personal history of other diseases of the female genital tract; Z80.3 Family history of malignant neoplasm of breast; Z82.49 Family history of ischemic heart disease and other diseases of the circulatory system
CPT/HCPCS: 45378; J2003; J2704; J7120